=== PATIENT | female | born 1985 | race American Indian/Alaskan Native ===

== ENCOUNTER 2017-03-12 07:26 | Emergency (ER) | payer MEDICAID ==
[2017-03-12 07:38] VITALS: BP 121/81
[2017-03-12] MEDS ORDERED: TYLENOL #3 PO ONE (08:24)
[2017-03-12] MEDS ORDERED: DELTASONE PO ONE (08:24)
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
== END 2017-03-12 08:41 | disposition home or self-care (01) ==
LOC: ED 07:26
DX: M76.62 Achilles tendinitis, left leg (principal); M76.61 Achilles tendinitis, right leg; B35.3 Tinea pedis; G89.29 Other chronic pain; Z88.0 Allergy status to penicillin; Z91.040 Latex allergy status
CPT/HCPCS: 99282; J7512

== ENCOUNTER 2017-07-01 15:37 | Emergency (ER) | payer OTHER, MEDICAID ==
[2017-07-01 15:55] VITALS: BP 121/81
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
== END 2017-07-01 18:17 | disposition home or self-care (01) ==
LOC: ED 15:37
DX: S16.1XXA Strain of muscle, fascia and tendon at neck level, initial encounter (principal); Z91.040 Latex allergy status; Z88.0 Allergy status to penicillin; Z88.8 Allergy status to other drugs, medicaments and biological substances; G89.29 Other chronic pain; V89.2XXA Person injured in unspecified motor-vehicle accident, traffic, initial encounter; Y92.488 Other paved roadways as the place of occurrence of the external cause; Y99.9 Unspecified external cause status; Y93.89 Activity, other specified
CPT/HCPCS: 99282

== ENCOUNTER 2017-08-30 23:26 | Emergency (ER) | payer MEDICAID, OTHER ==
[2017-08-30 23:35] VITALS: BP 107/70
[2017-08-31 00:10] LABS: Basophils % (Auto) 0.5 % (0.0-1.8); Eosinophils % (Auto) 1.8 % (0.0-4.3); Hematocrit 37.1 % (30.3-42.9); Hemoglobin 12.4 gm/dl (10.1-14.3); Mean Corpuscular HGB Conc 33 % (30-34); Mean Corpuscular Hemoglobin 32 pg (28-32); Mean Corpuscular Volume 95 fl (79-97); Platelet Count 281 K/mm3 (140-440); Red Blood Count 3.92 M/mm3 (3.65-5.03); Red Cell Distribution Width 13.5 % (13.2-15.2); White Blood Count 4.5 K/mm3 (4.5-11.0)
[2017-08-31 00:52] LABS: Anion Gap 19 mmol/L; BUN/Creatinine Ratio 22.85; Blood Urea Nitrogen 16 mg/dL (7-17); Calcium 8.9 mg/dL (8.4-10.2); Carbon Dioxide 23 mmol/L (22-30); Glucose 79 mg/dL (65-100); Sodium 139 mmol/L (137-145)
[2017-08-31 02:34] LABS: Bacteria,Urine 1+ /HPF (Negative); Bilirubin,Urine NEG (Negative); Blood,Urine SM (Negative); Ketones,Urine NEG (Negative); Leukocyte Esterase,Urine NEG (Negative); Mucus,Urine FEW /HPF; Nitrite,Urine NEG (Negative); Protein,Urine <15 mg/dL mg/dL (Negative); Urobilinogen,Urine < 2.0 mg/dL (<2.0)
== END 2017-08-31 | disposition left against medical advice (07) ==
LOC: ED 23:26
DX: N93.9 Abnormal uterine and vaginal bleeding, unspecified (principal); R42 Dizziness and giddiness; Z53.21 Procedure and treatment not carried out due to patient leaving prior to being seen by health care provider
CPT/HCPCS: 36415; 80048; 81001; 84703; 85025

== ENCOUNTER 2017-10-14 09:53 | Day surgery (SDC) | payer MEDICAID ==
--- NOTE | 2017-10-13 22:35 | History and Physical Report ---
History of Present Illness Date of examination: 10/13/17 Chief complaint: Missed History of present illness: Pt is a 32 year old LMP 07/30/17 at 10w5d by LMP who was found to have an IUP with CRL 7w4d and no heart tones on 10/09/17. She desires surgical management. Past History Past Medical History: other (Depression, Anxiety ) Past Surgical History: D&C, other (neck surgery ) RN BSN History: chlamydia (treated ) Family/Genetic History: diabetes, heart disease, hypertension Social history: other (engaged) Medications and Allergies Allergies Allergy/AdvReac Type Severity Reaction Status Date / Time latex Allergy Hives Verified 06/12/14 13:09 NSAIDS (Non-Steroidal Allergy Hives Verified 06/12/14 13:09 Anti-Inflamma Penicillins Allergy Shortness Verified 12/09/14 04:05 of Breath Home Medications Medication Instructions Recorded Confirmed Last Taken Type oxyCODONE /ACETAMINOPHEN [Percocet 1 tab PO Q6HR PRN #20 tablet 03/06/15 Unknown Rx 5/325] Cyclobenzaprine [Flexeril] 10 mg PO BID #2 tablet 01/24/16 08/28/16 Unknown Rx Oxycodone HCl [Roxicodone TAB] 30 mg PO BID #2 tablet 01/24/16 08/28/16 Unknown Rx Albuterol Sulfate [Ventolin HFA] 2 puff IH Q4H PRN #1 hfa.aer.ad 08/28/16 Unknown Rx Benzonatate [Tessalon Perles] 100 mg PO Q8HR #10 capsule 08/28/16 Unknown Rx predniSONE [Deltasone] 20 mg PO QDAY #5 tab 08/28/16 Unknown Rx Acetaminophen/Codeine [Tylenol 1 tab PO ONCE PRN #20 tablet 03/12/17 Unknown Rx /Codeine # 3 tab] Clotrimazole 1% [Lotrimin] 1 applic TP BID PRN #2 tube 03/12/17 Unknown Rx Prednisone [predniSONE 5 mg (6-Day 5 mg PO .TAPER #1 tab.ds.pk 03/12/17 Unknown Rx Pack, 21 Tabs)] Acetaminophen/Codeine [Tylenol 1 tab PO Q6H PRN #14 tab 07/01/17 Unknown Rx /Codeine # 3 tab] Active Meds: Active Medications Lactated Ringer's (Lactated Ringers) 1,000 mls @ 100 mls/hr IV DIRECT PAULINA Review of Systems All systems: negative - Physical Exam Breasts: Positive: deferred Cardiovascular: Regular rate Lungs: Positive: Clear to auscultation Abdomen: Positive: soft Extremities: Positive: normal Results All other labs normal. Assessment and Plan A: Missed at 7 wks P: Proceed with suction dilation and curettage and other indicated procedures.
[~2017-10-14 09:53] MED LIST: LACTATED RINGERS 1,000 ML IV SCH
--- NOTE | 2017-10-14 11:27 | Anesthesia Day of Surgery ---
Anesthesia Day of Surgery - Day of Surgery Patient Examined: Yes Patient H&P Reviewed: Yes Patient is NPO: Yes
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
[2017-10-14] MEDS ORDERED: DOXYCYCLINE HYCLATE 100 MG in NACL 0.9% 250ML 250 ML IV ONE (11:39)
[2017-10-14] MEDS ORDERED: PEPCID PO NR (12:00)
[2017-10-14] MEDS ORDERED: VERSED IV NR (12:00)
[2017-10-14 12:11] LABS: Basophils % (Auto) 0.8 % (0.0-1.8); Eosinophils % (Auto) 2.5 % (0.0-4.3); Hematocrit 36.5 % (30.3-42.9); Hemoglobin 12.2 gm/dl (10.1-14.3); Mean Corpuscular HGB Conc 34 % (30-34); Mean Corpuscular Hemoglobin 32 pg (28-32); Mean Corpuscular Volume 95 fl (79-97); Platelet Count 237 K/mm3 (140-440); Red Blood Count 3.84 M/mm3 (3.65-5.03); Red Cell Distribution Width 14.2 % (13.2-15.2); White Blood Count 4.3 K/mm3 (4.5-11.0)
[2017-10-14] MEDS ORDERED: DILAUDID ONE (16:56)
[2017-10-14] MEDS ORDERED: DIPRIVAN 10 MG/ML IV ONE (16:56)
[2017-10-14] MEDS ORDERED: XYLOCAINE MPF 2% ONE (16:56)
[2017-10-14] MEDS ORDERED: NACL 0.9% IR ONE (17:10)
[2017-10-14] MEDS ORDERED: METHERGINE IM ONE ×2 (17:10→17:29)
[2017-10-14] MEDS ORDERED: ZOFRAN ONE (17:21)
[2017-10-14] MEDS ORDERED: DECADRON ONE (17:21)
[2017-10-14] MEDS ORDERED: LACTATED RINGERS 1,000 ML ONE (17:57)
--- NOTE | 2017-10-14 18:26 | Operative Report ---
Operative Report Operative Report: Date of procedure: 10/14/2017 Preoperative diagnosis: Missed at 7 weeks Postoperative diagnosis: Same Procedure: Suction dilation and curettage Surgeon: Ani Mensah M.D. Anesthesia: General Findings: Small anteverted uterus EBL: 100 mL Urine output: 100 mL, clear prior to the procedure IV fluid: 300 mL Specimen: Products of conception to pathology Drains: None Consultations: None, counts correct 2 Medications: Methergine 0.2 mg IM Disposition: Stable to PACU Indication for procedure: Patient is a 32-year-old female 8 para 0343 at 10 weeks by LMP found to have a missed at 7 weeks. The patient elects surgical management. Operation in detail: After the risks, benefits, alternatives, and complication of the procedure was recommended to the patient, she gave informed consent for the procedure. She was subsequently taken to the operating room with IV noted to be running well and placed in the dorsal supine position. Gen. anesthesia was then induced without difficulty. The patient was then placed in the dorsal lithotomy position and prepped and draped in the normal sterile fashion. A timeout was performed. An exam under anesthesia was performed yielding the small anteverted uterus. The bladder was drained of 100 ml of clear urine. An open sided bivalve speculum was placed into the vagina for adequate visualization of the cervix. A single-tooth tenaculum was placed on the anterior lip of the cervix. The uterus was gently sounded to 8 cm. The cervix was sequentially dilated with Yoon dilators to a #21. A #7 curved rigid curet was used to perform a suction curettage. A sharp curette was used to ensure that all quadrants were gritty 4. The products of conception were sent to pathology. Subsequently Methergine 0.2 mg IM was administered. At this time a single-tooth tenaculum was removed from the cervix and the puncture sites are noted to be hemostatic. All instrument removed from the vagina and the procedure was ended. The patient was in place and the dorsal supine position and extubated without difficulty. She was subsequently taken to the PACU in stable condition. The patient tolerated the procedure well. All counts were correct 2.
--- NOTE | 2017-10-14 18:27 | Short Stay Summary ---
Short Stay Documentation Date of service: 10/14/17 - History H&P: dictated Social history: other (engaged) - Allergies and Medications Current Medications: Allergies latex Allergy (Verified 06/12/14 13:09) Hives NSAIDS (Non-Steroidal Anti-Inflamma Allergy (Verified 06/12/14 13:09) Hives Penicillins Allergy (Verified 12/09/14 04:05) Shortness of Breath Home Medications Medication Instructions Recorded Confirmed Last Taken Type oxyCODONE /ACETAMINOPHEN [Percocet 1 tab PO Q6HR PRN #20 tablet 03/06/15 Unknown Rx 5/325] Cyclobenzaprine [Flexeril] 10 mg PO BID #2 tablet 01/24/16 08/28/16 Unknown Rx Oxycodone HCl [Roxicodone TAB] 30 mg PO BID #2 tablet 01/24/16 08/28/16 Unknown Rx Albuterol Sulfate [Ventolin HFA] 2 puff IH Q4H PRN #1 hfa.aer.ad 08/28/16 Unknown Rx Benzonatate [Tessalon Perles] 100 mg PO Q8HR #10 capsule 08/28/16 Unknown Rx predniSONE [Deltasone] 20 mg PO QDAY #5 tab 08/28/16 Unknown Rx Acetaminophen/Codeine [Tylenol 1 tab PO ONCE PRN #20 tablet 03/12/17 Unknown Rx /Codeine # 3 tab] Clotrimazole 1% [Lotrimin] 1 applic TP BID PRN #2 tube 03/12/17 Unknown Rx Prednisone [predniSONE 5 mg (6-Day 5 mg PO .TAPER #1 tab.ds.pk 03/12/17 Unknown Rx Pack, 21 Tabs)] Acetaminophen/Codeine [Tylenol 1 tab PO Q6H PRN #14 tab 07/01/17 Unknown Rx /Codeine # 3 tab] Active Medications Lactated Ringer's (Lactated Ringers) 1,000 mls @ 100 mls/hr IV DIRECT PAULINA Last Admin: 10/14/17 11:55 Dose: 100 mls/hr Midazolam HCl (Versed) 2 mg IV PREOP NR Stop: 10/14/17 23:59 Last Admin: 10/14/17 11:56 Dose: 2 mg - Physical exam Breasts: deferred - Brief post op/procedure progress note Date of procedure: 10/15/17 Pre-op diagnosis: Missed at 7 wks Post-op diagnosis: same Procedure: Suction dilation and curettage Anesthesia: GETA Findings: Small anteverted uterus Surgeon: SHAWN RODRÍGUEZ Estimated blood loss: 50-100ml (100 mL) Pathology: list (products of conception) Specimen disposition: to lab Condition: stable - Hospital course Hospital course: The patient underwent suction dilation and curettage she tolerated well. She was subsequently observed in the PACU until she met discharge criteria. She'll follow-up in the office next week. - Disposition Condition at discharge: Stable Disposition: [id number]-01 TO HOME OR SELFCARE - Discharge Diagnoses (1) Missed Status: Acute Short Stay Discharge Plan Activity: other (Nothing in vagina x 4 weeks ) Weight Bearing Status: Full Weight Bearing Diet: regular Additional Instructions: APPOINTMENT: DR. SHAWN RODRÍGUEZ MD, WANTS TO SEE YOU IN 7 DAYS. CALL THE OFFICE FOR YOUR APPOINTMENT. ACTIVITY: NO RESTRICTIOS. DIET: REGULAR DIET. INSTRUCTIONS: FOLLOW MARY ELLEN ABEBE INSTRUCTION. Follow up with: PRIMARY CAREMD [Primary Care Provider] - 7 Days Forms: Outpatient Surgery DC Inst. Prescriptions: oxyCODONE /ACETAMINOPHEN [Percocet 5/325] 1 tab PO Q6HR PRN #30 tablet PRN Reason: Pain
[2017-10-14] MEDS ORDERED: PERCOCET 5/325 PO PRN (18:30)
[2017-10-14] MEDS ORDERED: NORCO 5/325 PO PRN (18:30)
[2017-10-14 20:01] VITALS: BP 108/65
== END 2017-10-14 19:50 | disposition home or self-care (01) ==
LOC: OR 09:53
PROVIDERS: ATTEND Obstetrics & Gynecology
DX: O02.1 Missed abortion (principal); Z3A.01 Less than 8 weeks gestation of pregnancy; F32.9 Major depressive disorder, single episode, unspecified; F41.9 Anxiety disorder, unspecified; Z88.0 Allergy status to penicillin; Z88.8 Allergy status to other drugs, medicaments and biological substances; Z91.040 Latex allergy status; Z79.899 Other long term (current) drug therapy; Z83.3 Family history of diabetes mellitus; Z82.49 Family history of ischemic heart disease and other diseases of the circulatory system; Z87.891 Personal history of nicotine dependence
CPT/HCPCS: 36415 ×2; 59820; 85025 ×2; 86850 ×2; 86900 ×2; 86901 ×2; 88305 ×2; J1100; J1170; J2210; J2250; J2405; J2704; J7050; J7120